=== PATIENT | male | born 1945 | race Two or more races ===

== ENCOUNTER → 2018-06-02 | Outpatient (CLI) | payer MEDICARE, OTHER ==
[~2018-06-02] MED LIST: CHOL500045 PO; FINA5TAB4 PO; HYDROCHLOROTH12.5 MG PO; TAMS-11 PO
[2018-06-02 11:17] LABS: BASOPHILS # (AUTO) 0.03 x10^3/uL (0-0.1); BASOPHILS % (AUTO) 1 % (0-1); EOSINOPHILS # (AUTO) 0.13 x10^3/uL (0-0.4); EOSINOPHILS % (AUTO) 3 % (1-7); LYMPHOCYTES # (AUTO) 1.13 x10^3/uL (1-3.4); LYMPHOCYTES % (AUTO) 21 % (22-44); MD NO; MEAN CORPUSCULAR HEMOGLOBIN 31.3 pg (27.5-34.5); MEAN CORPUSCULAR HGB CONC 33.4 g/dL (33.2-36.2); MEAN CORPUSCULAR VOLUME 93.6 fL (81-97); MEAN PLATELET VOLUME 8.6 fL (7.4-10.4); MONOCYTES # (AUTO) 0.32 x10^3/uL (0.2-0.8); MONOCYTES % (AUTO) 6 % (2-9); NEUTROPHILS # (AUTO) 3.74 x10^3/uL (1.8-6.8); NEUTROPHILS % (AUTO) 70 % (42-75); PLATELET COUNT 181 x10^3/uL (130-400); RED BLOOD COUNT 4.33 x10^6/uL (4.38-5.82); RED CELL DISTRIBUTION WIDTH 13.5 % (9.4-14.8)
[2018-06-02 11:26] LABS: ALANINE AMINOTRANSFERASE 29 U/L (12-78); ALBUMIN 4.1 g/dL (3.4-5.0); ANION GAP 5 mmol/L (5-15); CALCIUM 9.5 mg/dL (8.5-10.1); CHLORIDE 106 mmol/L (98-107); CREATININE 3.05 mg/dL (0.7-1.3)
[2018-06-02 11:27] LABS: ALKALINE PHOSPHATASE 91 U/L (45-117); BILIRUBIN,TOTAL 0.7 mg/dL (0.2-1.0); TOTAL PROTEIN 7.5 g/dL (6.4-8.2)
[2018-06-02 12:20] LABS: HEMOGLOBIN A1C 5.8 % (4.2-6.3)
== END | disposition home or self-care (01) ==
LOC: STAR 10:09
PROVIDERS: ATTEND Student in an Organized Health Care Education/Training Program
DX: Z01.818 Encounter for other preprocedural examination (principal); R33.9 Retention of urine, unspecified
CPT/HCPCS: 36415; 71046; 80053; 83036; 85025; 93005

== ENCOUNTER 2018-06-09 09:44 | Inpatient (IN) | payer MEDICARE, OTHER ==
[~2018-06-09] VITALS: Ht 172.7 cm; Wt 90.0 kg
[2018-06-09] MEDS ORDERED: LACTATED RINGERS 1,000 ML IV SCH (09:56)
[2018-06-09] MEDS ORDERED: ONDANSETRON ODT 8 MG PO ONE (10:00)
[2018-06-09] MEDS ORDERED: ACETAMINOPHEN 500 MG TABLET PO ONE (10:00)
[2018-06-09] MEDS ORDERED: GABAPENTIN 300 MG CAPSULE PO ONE (10:00)
[2018-06-09] MEDS ORDERED: MIDAZOLAM 1 MG/ML, 2ML ONE ×2 (12:04→12:05)
[2018-06-09] MEDS ORDERED: FENTANYL PF 100 MCG/2ML ONE ×2 (12:05→13:30)
[2018-06-09] MEDS ORDERED: SUGAMMADEX 200 MG/2 ML IVPush ONE (12:10)
[2018-06-09] MEDS ORDERED: PHENYLEPHRINE 10 MG/ML ONE (12:12)
[2018-06-09] MEDS ORDERED: PROPOFOL 10 MG/ML, 20ML ONE (12:12)
[2018-06-09] MEDS ORDERED: ROCURONIUM 10 MG/ML,10ML ONE (12:12)
[2018-06-09] MEDS ORDERED: CEFAZOLIN 1,000 MG ONE (12:12)
[2018-06-09] MEDS ORDERED: DEXAMETHASONE 4 MG/ML, 1ML ONE (12:12)
[2018-06-09] MEDS ORDERED: LIDOCAINE-MPF 2% ,5ML ONE (12:12)
[2018-06-09] MEDS ORDERED: LABETALOL 5MG/ML, 20ML IV PRN (13:00)
[2018-06-09] MEDS ORDERED: LORazepam 2 MG/ML, 1ML IVPush PRN (13:00)
[2018-06-09] MEDS ORDERED: OXYcodone 5 MG/5 ML ORAL.SOL UDC PO PRN (13:00)
[2018-06-09] MEDS ORDERED: hydrALAzine 20 MG/ML, 1ML IV PRN (13:00)
[2018-06-09] MEDS ORDERED: HYDROmorphone 2 MG/ML, 1ML IVPush PRN (13:00)
[2018-06-09] MEDS ORDERED: FENTANYL PF 100 MCG/2ML IV PRN (13:00)
[2018-06-09] MEDS ORDERED: ONDANSETRON 2MG/ML, 2ML IV PRN ×2 (13:00→16:30)
[2018-06-09 15:06] LABS: ANION GAP 4 mmol/L (5-15); CALCIUM 7.9 mg/dL (8.5-10.1); CHLORIDE 110 mmol/L (98-107); CREATININE 3.26 mg/dL (0.7-1.3)
[2018-06-09 16:05] VITALS: BP 114/80
[2018-06-09] MEDS ORDERED: OXYcodone IR 5MG TABLET PO PRN (16:30)
[2018-06-09] MEDS ORDERED: OPIUM/BELLADONNA SUPP.RECT 16.2-30 MG PR PRN (16:30)
[2018-06-09] MEDS ORDERED: HYDROmorphone 2 MG/ML, 1ML IV PRN (16:30)
[2018-06-09] MEDS: SODIUM CHLORIDE 0.9% 1,000 ML IV SCH (16:52)
[2018-06-09] MEDS: DOCUSATE 100 MG CAPSULE PO SCH (20:30)
[2018-06-09 23:25] VITALS: BP 109/69
[2018-06-10] MEDS ORDERED: MAGNESIUM SULFATE PMX 2GM/50ML 50 ML IV ONE (01:00)
[2018-06-10] MEDS: SODIUM CHLORIDE 0.9% 1,000 ML IV SCH ×2 (01:01→08:19)
[2018-06-10 03:31] VITALS: BP 111/66
[2018-06-10 06:16] LABS: ANION GAP 7 mmol/L (5-15); CHLORIDE 109 mmol/L (98-107); CREATININE 3.16 mg/dL (0.7-1.3)
[2018-06-10] MEDS: DOCUSATE 100 MG CAPSULE PO SCH (08:19)
[2018-06-10 08:45] VITALS: BP 119/79
[2018-06-10] MEDS ORDERED: POLYETHYLENE GLYCOL 17 GM PACKET PO SCH (09:00)
[2018-06-10] MEDS ORDERED: HYDROCHLOROTHIAZIDE 12.5 MG CAPSULE PO SCH (09:00)
[2018-06-10] MEDS ORDERED: POLY17PO5 PO (12:03)
[2018-06-10] MEDS ORDERED: DOCU100C33 PO (12:03)
[2018-06-10 13:13] VITALS: BP 138/69
== END 2018-06-10 13:40 | disposition home or self-care (01) | DRG 713 ==
LOC: OUT 09:44 → 4NOR 15:53 → OUT 15:57 → DCLOUNGE 06-10 13:30
PROVIDERS: ADMIT Student in an Organized Health Care Education/Training Program; ATTEND Student in an Organized Health Care Education/Training Program
PROC: 0VB08ZZ Excision of Prostate, Via Natural or Artificial Opening Endoscopic (ICD-10-PCS; principal; 2018-06-09 12:00)
DX: N40.1 Benign prostatic hyperplasia with lower urinary tract symptoms (principal); N17.0 Acute kidney failure with tubular necrosis; R33.8 Other retention of urine; F41.9 Anxiety disorder, unspecified; R00.0 Tachycardia, unspecified; I10 Essential (primary) hypertension; Z87.891 Personal history of nicotine dependence; Z80.43 Family history of malignant neoplasm of testis; Z90.79 Acquired absence of other genital organ(s)
CPT/HCPCS: 36415; 80048; 83735; 84443; 85014; 85018; 88305; 93005; G0378; J0690; J1100; J2250; J2704; J3010; J3490; Q0162; J2370; J3475; J7030; J7120